=== PATIENT | female | born 2000 | race Caucasian/White ===

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

== ENCOUNTER 2020-02-13 09:47 | Outpatient (CLI) | payer MEDICAID, SELFPAY ==
--- NOTE | 2020-02-13 10:15 | US_ITS ---
WS: [id number] ULTRASOUND LEFT BREAST HISTORY: tender lump left lateral upper breast. COMPARISON: None available. TECHNIQUE: 2-D and Doppler. Ovoid soft tissue mass is hypoechoic centered at 1:00 as directed by the patient. Mass measures 2.0 x 0.9 x 1.7 cm. There is some increased vascularity. There are benign lymph nodes in the axilla. 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 Due to its size surgi link removal or ultrasound-guided biopsy could be performed to confirm diagnosis . If this mass increases in size biopsy or surgical removal is recommended.
== END 2020-02-13 09:48 | disposition home or self-care (01) ==
LOC: RAD 09:55
PROVIDERS: PCP Family Medicine; Visit Provider Emergency Medicine
DX: Z80.3 Family history of malignant neoplasm of breast; N63.20 Unspecified lump in the left breast, unspecified quadrant
CPT/HCPCS: 76642

== ENCOUNTER 2020-06-19 08:05 | Outpatient (CLI) | payer BC, MEDICAID, SELFPAY ==
--- NOTE | 2020-06-19 08:00 | US_ITS ---
WS: [id number] ULTRASOUND LEFT BREAST HISTORY: N63.0 - Unspecified lump in unspecified breast COMPARISON: 02/13/2020 TECHNIQUE: 2-D and Doppler. Ultrasound again performed of the palpable nodule 1:00, 5 cm from the nipple. There is a hypoechoic m ass which is ovoid in shape with increased vascularity. Mass measures 2.5 x 1.8 x 1.3 cm. Mass is elias suring larger in size as compared to the prior study. As recommended on the prior examination surgica l removal or ultrasound-guided biopsy can be performed. Due to its increase in size and being painful suggest surgical removal at this time. Small benign lymph nodes in the axilla. US/US breast LT limited* [id number] IMPRESSION: BI-RADS: 4-Suspicious Finding-Biopsy Should Be Considered FOLLOW-UP: Biopsy Recommended Due to the increase in size and pain consider surgical removal of this mass at 1:00. This mass has slightly increased in size since 02/13/2020. At that time ult rasound guided biopsy or surgical removal was recommended as a consideration. F ibroadenoma which is a benign lesion is still within the differential.
== END 2020-06-19 08:06 | disposition home or self-care (01) ==
LOC: RAD 08:13
PROVIDERS: PCP Family Medicine; Visit Provider Nurse Practitioner Women's Health
DX: N63.21 Unspecified lump in the left breast, upper outer quadrant (principal)
CPT/HCPCS: 76642

== ENCOUNTER → 2020-06-28 10:38 | Outpatient (BNVA) | payer BC, MEDICAID, SELFPAY | PROVIDERS: PCP Family Medicine; Visit Provider Surgery | DX: Z20.828 Contact with and (suspected) exposure to other viral communicable diseases (principal) | CPT/HCPCS: 87635 ==

== ENCOUNTER 2020-07-03 08:25 | Day surgery (SDC) | payer BC, MEDICAID, SELFPAY ==
[2020-07-02 11:18] VITALS: BMI 21.4
[2020-07-03 08:40] VITALS: BP 127/87; PULSE 87; RESP 18; TEMP 36.9; O2SAT 99
[2020-07-03] MEDS: sodium chloride 0.9% 1,000 ML 30 ML IV (09:01)
--- NOTE | 2020-07-03 09:36 | ANES.PREANE2 ---
Pre-Anesthetic Assessment Pre-Anesthetic Assessment: Height/Weight: Height 1.63 m Weight 56.699 kg Temp Pulse Resp BP Pulse Ox 98.5 F 87 18 127/87 99 07/03/20 08:40 07/03/20 08:40 07/03/20 08:40 07/03/20 08:40 07/03/20 08:40 Preop Diagnosis: Left breast mass Proposed Procedure: Operation Date: 07/03/20 10:00 Proposed Procedures p left breast simple lumpectomy N63.0(Not Applicable) - Waldemar Georges MD Was Beta Hernesto taken within 24 hours: N/A Last intake: Intake Last Liquid Date 07/02/20 Last Solid Date 07/02/20 Social: Social History: No alcohol and No tobacco Exam: Pre-Anes Outpt Exam: alert, oriented x 3, clear to auscultation bilaterally and regular rate & rhythm Airway: Submandibular: WNL Cervical ROM: WNL MP: 2 Dentition: Full Neuropsych: Neuropsych: Anxiety and [place] Anesthetic Plan: ASA status: 2 Anesthesia: MAC Risk of > 500 ml blood loss (7ml/kg in children): No Meds/Allergies Current Medications: Current Medications Generic Name Dose Route Start Last Admin Trade Name Freq PRN Reason Stop Dose Admin Sodium Chloride 1,000 mls @ 30 ml s/hr 07/03/20 08:30 07/03/20 09:01 Sodium Chloride 0.9% IV 07/04/20 08:29 30 mls/hr .Q24H SHREYA Administration PFSH Anesthesia PFSH: Medical History Chronic migraine Vision disturbance with migraine Depression Family history of breast cancer in first degree relative Hypoglycemia Surgical History H/O oral surgery (~2019) Family History Mother Hypertension Breast cancer, Onset Age: 29 Family history of thyroid problem Grandmother Hypertension Diabetes Paternal grandmother Breast cancer, Onset Age: 30 MGM Family history of thyroid problem Maternal grandmother Ovarian cancer Maternal grandmother Grandfather Hypertension Family/Other Breast cancer Maternal great aunt Denies family history of Stroke Female Reproductive History: Date of last menstrual period: 06/30/20 Spontaneous abortions: No Data Anesthesia Cardiac Studies: No Data to Display
--- NOTE | 2020-07-03 09:45 | W.PM.OPSUD ---
Surgery/Procedure H&P Update DATE OF PROCEDURE: July 03, 2020 DATE H&P PERFORMED: 06/24/20 H&P UPDATE INFORMATION: I have reviewed H&P completed within last 30 days, I have examined patient prior to procedure and No changes to prior documentation PREOP DIAGNOSIS: Left breast mass PLANNED PROCEDURE: Operation Date: 07/03/20 10:00 Proposed Procedures p left breast simple lumpectomy 60434 N63.0(Not Applicable) - Waldemar Georges MD
[2020-07-03 10:23] LABS: OR HCG Qualitative Urine Negative (Negative)
[2020-07-03] MEDS: lidocaine 1% INJ 20 mL IM (11:10)
--- NOTE | 2020-07-03 11:20 | P.OP_ITS ---
Operative Report Date of procedure: July 03, 2020 Pre-op Diagnosis: Left breast mass 2:00 clock position 4 cm from the nipple Post-op diagnosis: same Procedure Done: Left breast lumpectomy Specimens removed/disposition: Left breast mass 10 o'clock position 4 cm from the nipple Surgeon: Waldemar Georges Anesthesia: MAC and General Condition: stable Disposition: PACU Procedure: The patient was taken to the operating room and placed under MAC afte r IV antibiotic had been administered. The left breast was prepped and draped in a sterile manner. 1% lidocaine with 0.5% Marcaine was infiltrated around the left breast mass which was at 2 o'clock position about 4 cm from the nipple. A curvilinear areolar incision was made from 12:00 to 3 o'clock position and using electrocautery a lateral skin flap was placed to go down to the palpable mass. The mass was dissected free from the surrounding subcutaneous tissue and sent to pathology. The wound was irrigated with saline and subcutaneous was approximated using interrupted 3-0 Vicryl suture and skin was closed using running subcuticular 4-0 Monocryl and surgical glue. The patient was extubated and transferred to recovery room in stable condition.
[2020-07-03 11:30] VITALS: BP 94/50; PULSE 69; RESP 16; TEMP 36.1; O2SAT 96
[2020-07-03 11:56] VITALS: BP 101/55; PULSE 86; RESP 18; O2SAT 99
--- NOTE | 2020-07-03 13:05 | ANE.PACU2 ---
Inpatient post-anesthesia follow up: Airway intact: Yes Vital signs: Temperature 97 F Pulse Rate 86 Respiratory Rate 18 Blood Pressure 101/55 Pulse Oximetry 99 Oxygen Delivery Me thod Room Air Oxygen Flow Rate Fraction of Inspir ed Oxygen Hydration adequate: Yes Nausea and vomiting: No Pain level: 1 Mental status: Baseline
== END 2020-07-03 12:31 | disposition home or self-care (01) ==
PROVIDERS: Anesthesiology; PCP Family Medicine; Visit Provider Surgery
PROC: (CPT 19301; principal; 2020-07-03 10:00)
DX: D24.2 Benign neoplasm of left breast (principal); Z80.3 Family history of malignant neoplasm of breast
CPT/HCPCS: 19301; 12345; 84703; 88305; J0690; J1885; J2250; J2405; J2704; J3010; J3490; J7030

== ENCOUNTER 2020-07-18 22:31 | Emergency (ER) | payer BC, MEDICAID, SELFPAY ==
[2020-07-18 22:50] VITALS: BP 136/75; PULSE 70; RESP 16; TEMP 36.1; O2SAT 100; BMI 20.7
--- NOTE | 2020-07-18 23:18 | W.ED.GENADLT ---
HPI - General Adult General: Chief complaint: General Medical Stated complaint: BLEEDING FROM SURGICAL SITE(2 WKS AGO)/ALEXANDER MEZA Time Seen by Provider: 07/18/20 22:56 Source: patient Mode of arrival: ambulatory Limitations: no limitations History of Present Illness: HPI narrative: 19-year-old female who had a breast mass removed 2 to 3 weeks ago. She had a follow-up ointment with Dr. Meza today and had a hematoma formed to the upper portion of her breast. He did drain it with an 18-gauge but she states she has had increased bleeding from the needle site. She states she is soaking through her dressings. She does have some pain she rates a 5 out of 10. Denies any worsening improving factors. Associated symptoms: Deny chest pain, dyspnea, headache(s), nausea, rash or vomiting Review of Systems Const: Denies: fever(s), chills, body aches or change in appetite Eyes: Denies: blurry vision or eye discomfort ENMT: Denies: throat pain or dental pain Card: Denies: chest pain Resp: Denies: dyspnea GI: Denies: abdominal pain, nausea, vomiting or diarrhea : Denies: dysuria Musc: Denies: neck pain or back pain Skin/Breast: Denies: rash Neuro: Denies: headache(s) Psych: Denies: depression Samir/Lymph: Denies: easy bruising All/Imm: Denies: urticaria PFSH ED PFSH: Medical History Breast mass left breast mass; typical for fibroadenoma Chronic migraine Vision disturbance with migraine Depression Family history of breast cancer in first degree relative Hypoglycemia Surgical History H/O oral surgery (~2019) Status post left breast lumpectomy (07/03/20) Family History Mother Hypertension Breast cancer, Onset Age: 29 Family history of thyroid problem Grandmother Hypertension Diabetes Paternal grandmother Breast cancer, Onset Age: 30 MGM Family history of thyroid problem Maternal grandmother Ovarian cancer Maternal grandmother Grandfather Hypertension Family/Other Breast cancer Maternal great aunt Denies family history of Stroke Female Reproductive History: Date of last menstrual period: 06/30/20 Spontaneous abortions: No Physical Exam Const: COMMON NORMALS: no acute distress, patient oriented x3 and healthy appearing HENMT: COMMON NORMALS: normocephalic and atraumatic HEAD & SCALP: normocephalic and atraumatic Eye: COMMON NORMALS: Equal, round and reactive pupils present and EOMs intact bilaterally PUPIL: Yes Equal, round and reactive pupils present Neck/C-Spine: COMMON NORMALS: full ROM and supple Chest: COMMONS NORMALS: normal palpation of entire chest wall OTHER: Patient has a hematoma to her left breast. Have been drained with an 18-gauge needle appears today but still has blood draining from where the needle was and still has hematoma noted. Resp: COMMON NORMALS: normal respiratory effort, No retractions, No use of accessory muscles and clear to auscultation bilaterally AUSCULTATION: clear to auscultation bilaterally Cardio: COMMON NORMALS: regular rate, regular rhythm and No murmurs present (Cardio) RATE: regular rate RHYTHM: regular rhythm GI: COMMON NORMALS: Normal to inspection, nondistended, normoactive bowel sounds present, Soft to palpation, non-tender and no masses PALPATION: Yes Soft to palpation Extremity: COMMON NORMALS: normal to inspection and full ROM Neuro: COMMON NORMALS: patient oriented x3, moves all extremities and no focal motor deficits Psych: COMMON NORMALS: mental status grossly normal, Normal thought process present and cooperative THOUGHT PROCESS: Normal thought process present Skin: COMMON NORMALS: no rashes or lesions noted and no wounds GENERAL SKIN EXAM: no rashes or lesions noted Course Vital Signs: Vital signs: Vital Signs Temperature 97.0 F L 07/18/20 22:50 Pulse Rate 70 07/18/20 22:50 Respiratory Rate 16 07/18/20 22:50 Blood Pressure 136/75 07/18/20 22:50 Pulse Oximetry 100 07/18/20 22:50 MDM - General Adult MDM Narrative: Medical decision making narrative: Patient presents with a hematoma to her left breast. Hematoma was drained today. She has had some slight drainage from the hematoma but is well-appearing here. Placed a compression dressing on it with an Kaden wrap. She is to follow-up in Dr. Meza with 2 to 3 days and return to the ER if worsening. She understands agrees to plan. Discharge Plan Discharge Patient Disposition: Home Clinical Impression: Breast hematoma Condition: Stable Prescriptions: No Action Nexplanon 68 mg implant 1 implant SUBDERMAL ONCE RF: 0 multivitamin Capsule 1 cap PO QAM RF: 0 ondansetron 4 mg tablet,disintegrating 4 mg PO Q6H PRN (Reason: nausea and vomiting) Qty: 12 RF: 0 evening primrose oil 500 mg capsule 500 mg PO DAILY RF: 0 Colace 100 mg capsule 100 mg PO BID Qty: 30 RF: 0 Discharge Orders: Discharge ED (Routine); Ordered 07/18/20 Ordered By: Laura Jean-Baptiste Referrals: Waldemar Meza MD [Physician] - 1-3 days Tanvi Peña DO [Primary Care Provider] - Discharge Diet: Advance as tolerated Discharge Activity: Resume usual activity Patient Instructions: Postoperative Bleeding (ED) Stand Alone Forms: Work/School Release Coding Level of Care Code ED Glazier Helper for Justinag Fwd Exam Comprehensive
[2020-07-18] MEDS: HYDROcodone-acetaminophen 7.5-325 mg Tablet 1 TAB PO (23:22)
[2020-07-18] MEDS: lidocaine 1% INJ 20 mL INJECTION (23:25)
[2020-07-19 00:04] VITALS: PULSE 66; O2SAT 100
== END 2020-07-19 00:04 | disposition home or self-care (01) ==
PROVIDERS: Emergency Provider Emergency Medicine; PCP Family Medicine
DX: L76.32 Postprocedural hematoma of skin and subcutaneous tissue following other procedure (principal)
CPT/HCPCS: 99283

== ENCOUNTER → 2021-03-09 15:31 | Outpatient (BNVA) | payer BC, MEDICAID, SELFPAY | PROVIDERS: PCP Family Medicine; Visit Provider Nurse Practitioner Women's Health | DX: Z11.3 Encounter for screening for infections with a predominantly sexual mode of transmission (principal); Z01.419 Encounter for gynecological examination (general) (routine) without abnormal findings; Z30.46 Encounter for surveillance of implantable subdermal contraceptive | CPT/HCPCS: 86592; 86803; 87340; 87491; 87591; 87661; 87806 ==

== ENCOUNTER → 2021-06-10 14:00 | Outpatient (BNVA) | payer BC, MEDICAID, SELFPAY | PROVIDERS: PCP Family Medicine; Visit Provider Nurse Practitioner Women's Health | DX: A74.9 Chlamydial infection, unspecified (principal) | CPT/HCPCS: 87491 ==

== ENCOUNTER → 2021-10-01 11:41 | Outpatient (BNVA) | payer BC, MEDICAID, SELFPAY | PROVIDERS: PCP Family Medicine; Visit Provider Nurse Practitioner Women's Health | DX: N92.6 Irregular menstruation, unspecified (principal) | CPT/HCPCS: 82306; 83036; 84146; 84402; 84439; 84443; 87491; 87591; 87661 ==

== ENCOUNTER → 2022-01-15 09:32 | Outpatient (BNVA) | payer BC, MEDICAID, SELFPAY | PROVIDERS: PCP Family Medicine; Visit Provider Nurse Practitioner Women's Health | DX: N92.6 Irregular menstruation, unspecified (principal) | CPT/HCPCS: 76830 ==

== ENCOUNTER 2022-01-17 21:50 | Emergency (ER) | payer BC, MEDICAID, SELFPAY ==
--- NOTE | 2022-01-17 21:54 | ECG_ITS ---
[facility] Test Date: 2022-01-17 Pat Name: Faye High Department: Room: Gender: Female Drug Abuse Resistance Education Officer: : 2000 Requested By: Laura Jean-Baptiste Order Number: [id number] Cara MD: Tyrell Reid M.D. Measurements Intervals [place] Rate: 88 P: 148 NE: 125 QRS: 137 QRSD: 98 T: 73 QT: 363 QTc: 441 Interpretive Statements ECTOPIC ATRIAL RHYTHM POSSIBLE LEFT ATRIAL ENLARGEMENT [-0.1mV P-WAVE IN V1/V2] LEFT POSTERIOR FASCICULAR BLOCK [QRS AXIS > 109, INFERIOR Q] No previous ECG available for comparison Electronically Signed On 01-18-2022 13:13:19 CDT by Tyrell Reid M.D. [id number] kira
--- NOTE | 2022-01-17 21:54 | XRR_ITS ---
PROCEDURE INFORMATION: Exam: XR Chest Exam date and time: 01/17/2022 10:14 PM Age: 21 years old Clinical indication: Pain; Prior surgery; Surgery date: 6+ months; Surgery type: Left breast lumpectomy; Patient HX: C/O chest pressure today and 1 week ago or more. ; Additional info: Cp TECHNIQUE: Imaging protocol: Radiologic exam of the chest. Views: 1 view. COMPARISON: CT kidney stone [id number] 03/08/2017 10:47 PM FINDINGS: Lungs: Unremarkable. No consolidation. Pleural spaces: Unremarkable. No pleural effusion. No pneumothorax. Heart/Mediastinum: Unremarkable. No cardiomegaly. Bones/joints: Unremarkable. XR/XR chest 1V portable [id number] IMPRESSION: No acute findings.
[2022-01-17 22:01] VITALS: BP 148/96; PULSE 88; RESP 16; TEMP 36.9; O2SAT 99
[2022-01-17 23:18] VITALS: BP 115/68; PULSE 60; RESP 16; O2SAT 98
--- NOTE | 2022-01-17 23:37 | ED_ITS ---
HPI - Chest Pain General: Chief Complaint: Chest Pain Stated Complaint: chest pain Time Seen by Provider: 01/17/22 23:30 History of Present Illness: 21-year-old female comes in today with complaints of left lower chest pain radiating to the midepigastric area. Patient reports that nothing seems to worsen the pain or lessen the pain. Patient reports symptoms started this afternoon around 4:00. Patient also had a similar event 2 to 3 weeks ago. Patient denies any fever or chills. Patient appears nontoxic. Patient appears in no pain at rest. 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 Family History Mother Hypertension Breast cancer dx age 29 Family history of thyroid problem Grandmother Hypertension Paternal Diabetes Paternal grandmother Breast cancer MGM--dx age 30 Family history of thyroid problem Maternal grandmother Ovarian cancer Maternal grandmother--dx age unknown Grandfather Hypertension Paternal Family/Other Breast cancer Maternal great aunt--dx age unknown Father Heart disease Hypertension Denies family history of Colon cancer Hypercholesteremia Uterine cancer Stroke Social History Smoking and tobacco status: never smoked Female Reproductive History: Date of last menstrual period: 06/30/20 Spontaneous abortions: No Physical Exam Const: COMMON NORMALS: alert HENMT: COMMON NORMALS: normocephalic and Normal external nose present HEAD & SCALP: normocephalic NOSE: Normal external nose present Eye: GENERAL EYE: appearance normal, both eyes and all related structures Neck/C-Spine: COMMON NORMALS: full ROM Chest: COMMONS NORMALS: normal palpation of entire chest wall Resp: COMMON NORMALS: normal respiratory effort and clear to auscultation bilaterally AUSCULTATION: clear to auscultation bilaterally Cardio: COMMON NORMALS: regular rate and regular rhythm RATE: regular rate RHYTHM: regular rhythm GI: COMMON NORMALS: Soft to palpation and non-tender PALPATION: Yes Soft to palpation : COMMON NORMALS: Yes no CVA tenderness BLADDER/KIDNEY EXAM: Yes no CVA tenderness Back/Pelvis: COMMON NORMALS: no CVA tenderness Extremity: COMMON NORMALS: no pedal edema Neuro: SENSORIUM/ORIENTATION: Yes alert Skin: COMMON NORMALS: turgor normal GENERAL SKIN EXAM: turgor normal Course Vital Signs: Vital signs: Vital Signs Temperature 98.5 F 01/17/22 22:01 Pulse Rate 60 01/17/22 23:18 Respiratory Rate 16 01/17/22 23:18 Blood Pressure 115/68 01/17/22 23:18 Pulse Oximetry 98 01/17/22 23:18 MDM - Chest Pain Medical Decision Making 21-year-old female comes in [facility] with an episode of chest discomfort. On exam lungs are clear to auscultation, chest wall is nontender, heart sounds were normal, regular rhythm was noted. No edema is noted in the extremities. Abdomen soft nontender. Vital signs were normal. Differential diagnosis includes but not limited to valvular heart disease, ACS, pleurisy, anxiety. Chest x-ray was unremarkable. Laboratory values were unremarkable. Troponin was less than 6. EKG showed a sinus rhythm with no ST elevation or ectopy. Reviewed exam with patient recommended to follow-up with primary care or agronomy internship. Patient wanted to go ahead and have the referral to cardiology for further evaluation and treatment. Case management was requested to set up appointment with cardiology for further evaluation. Patient was recommended to return to the ER for worsening symptoms or new concerns. Lab Data : 01/17/22 23:45 01/17/22 23:45 Radiology Impressions Chest X-Ray 01/17/22 21:54 IMPRESSION: No acute findings. Laboratory Results WBC 7.7 10^3/uL (4.0-10.0) 01/17/22 23:45 RBC 4.38 10^6/uL (4.1-5.3) 01/17/22 23:45 Hgb 13.2 g/dL (11.5-15.3) 01/17/22 23:45 Hct 40.9 % (37.0-47.0) 01/17/22 23:45 MCV 93.4 fl (81-99) 01/17/22 23:45 MCH 30.1 pg (28.0-34.0) 01/17/22 23:45 MCHC 32.3 g/dL (30.0-36.0) 01/17/22 23:45 RDW 11.8 % (12.1-15.1) L 01/17/22 23:45 Plt Count 245 10^3/cmm (130-400) 01/17/22 23:45 MPV 11.0 fL (7.4-10.4) H 01/17/22 23:45 Neut % (Auto) 43.3 % 01/17/22 23:45 Lymph % (Auto) 46.7 % 01/17/22 23:45 Deuel % (Auto) 7.8 % 01/17/22 23:45 Eos % (Auto) 1.4 % 01/17/22 23:45 Baso % (Auto) 0.7 % 01/17/22 23:45 Neut # (Auto) 3.32 10^3/uL (1.8-7.7) 01/17/22 23:45 Lymph # (Auto) 3.6 10^3/uL (0.8-4.8) 01/17/22 23:45 Deuel # (Auto) 0.6 10^3/uL (0.2-0.9) 01/17/22 23:45 Eos # (Auto) 0.1 10^3/uL (0.0-0.8) 01/17/22 23:45 Baso # (Auto) 0.1 10^3/uL (0.0-0.1) 01/17/22 23:45 Nucleated RBC % (auto) 0 % 01/17/22 23:45 Nucleated RBCs # 0.0 /100WBC 01/17/22 23:45 Sodium 138 mmol/L (136-145) 01/17/22 23:45 Potassium 3.8 mmol/L (3.5-5.1) 01/17/22 23:45 Chloride 103 mmol/L (98-107) 01/17/22 23:45 Carbon Dioxide 24 mmol/L (22-29) 01/17/22 23:45 Anion Gap 14.8 (5-19) 01/17/22 23:45 BUN 13 mg/dL (6-20) 01/17/22 23:45 Creatinine 0.5 mg/dL (0.5-0.9) 01/17/22 23:45 GFR Calculation 155.7 mL/min (90-130) H 01/17/22 23:45 Glucose 85 mg/dL (65-115) 01/17/22 23:45 Calculated Osmolality 285 mOsm/kg (285-295) 01/17/22 23:45 Calcium 9.3 mg/dL (8.5-10.5) 01/17/22 23:45 Total Bilirubin 0.2 mg/dL (0.15-1.2) 01/17/22 23:45 AST 13 U/L (0-32) 01/17/22 23:45 ALT 11 U/L (0-33) 01/17/22 23:45 Alkaline Phosphatase 84 IU/L (35-105) 01/17/22 23:45 Troponin T Baseline 6 ng/L (0-10) 01/17/22 23:45 Total Protein 7.3 g/dL (6.6-8.7) 01/17/22 23:45 Albumin 4.3 g/dL (3.5-5.2) 01/17/22 23:45 Globulin 3.0 g/dL (1.3-4.6) 01/17/22 23:45 HCG, Qual Negative (Negative) 01/17/22 23:45 Discharge Plan Discharge Patient Disposition: Home Clinical Impression: Chest pain Qualifiers: Chest pain type: other chest pain Qualified Code(s): R07.89 - Other chest pain Condition: Stable Prescriptions: No Action albuterol sulfate 90 mcg/actuation HFA aerosol inhaler 2 puff inhalation Q6H PRN (Reason: shortness of breath or wheezing) Qty: 8.5 0RF amoxicillin-pot clavulanate 875-125 mg tablet 1 tab PO BID 7 Days Qty: 14 0RF [id number] [Bromfed DM] 2-30-10 mg/5 mL syrup 7.5 ml PO Q6H PRN (Reason: cold symptoms) Qty: 160 0RF prednisone 20 mg tablet 20 mg PO DAILY 5 Days Qty: 5 0RF cholecalciferol (vitamin D3) 1,250 mcg (50,000 unit) capsule 50,000 unit PO .weekly 56 Days Qty: 8 0RF Discharge Orders: Discharge ED (Routine); Ordered 01/18/22 Ordered By: Gen Mancia Referrals: Tanvi Peña DO [Primary Care Provider] - Discharge Diet: Usual diet Discharge Activity: Increase activity as tolerated Patient Instructions: Chest Pain (ED) Activity Restrictions/Additional Instructions: Follow-up with primary care in the morning for further evaluation and treatment. Your primary care provider may want to have further testing regarding your chest discomfort. Your labs, EKG, and x-rays indicated no acute illnesses. Follow-up with emergency department for worsening symptoms such as increasing shortness of breath, fever greater than 100.4, or uncontrolled pain. Coding Level of Care Code ED Certified Dialysis Technician for Risa Fwtani Exam Comprehensive
[2022-01-18 00:19] LABS: Alanine Aminotransferase 11 U/L (0-33); Albumin Level 4.3 g/dL (3.5-5.2); Alkaline Phosphatase 84 IU/L (35-105); Anion Gap 14.8 (5-19); Aspartate Amino Transferase 13 U/L (0-32); Blood Urea Nitrogen 13 mg/dL (6-20); Calcium 9.3 mg/dL (8.5-10.5); Carbon Dioxide 24 mmol/L (22-29); Chloride 103 mmol/L (98-107); Glomerular Filtration Rate 155.7 mL/min (90-130); Glucose 85 mg/dL (65-115); Osmolality Calculated 285 mOsm/kg (285-295); Potassium 3.8 mmol/L (3.5-5.1); Sodium 138 mmol/L (136-145); Total Bilirubin 0.2 mg/dL (0.15-1.2); Total Protein 7.3 g/dL (6.6-8.7)
[2022-01-18 00:20] LABS: Basophils # 0.1 10^3/uL (0.0-0.1); Basophils % 0.7 %; Eosinophils # 0.1 10^3/uL (0.0-0.8); Eosinophils % 1.4 %; Hematocrit 40.9 % (37.0-47.0); Hemoglobin 13.2 g/dL (11.5-15.3); Lymphocytes # 3.6 10^3/uL (0.8-4.8); Lymphocytes % 46.7 %; Mean Corpuscular HGB Conc 32.3 g/dL (30.0-36.0); Mean Corpuscular Hemoglobin 30.1 pg (28.0-34.0); Mean Corpuscular Volume 93.4 fl (81-99); Monocytes # 0.6 10^3/uL (0.2-0.9); Monocytes % 7.8 %; Neutrophils # 3.32 10^3/uL (1.8-7.7); Neutrophils % 43.3 %; Nucleated Red Blood Cells % 0 %; Platelet Count 245 10^3/cmm (130-400); Red Blood Count 4.38 10^6/uL (4.1-5.3); Red Cell Distribution Width 11.8 % (12.1-15.1); White Blood Count 7.7 10^3/uL (4.0-10.0)
[2022-01-18 00:21] LABS: HCG, Serum Qual Negative (Negative)
[2022-01-18 00:22] LABS: Troponin(5th) Baseline 6 ng/L (0-10)
[2022-01-18 00:53] VITALS: BP 122/68; PULSE 55; RESP 16; O2SAT 98
--- NOTE | 2022-01-18 10:35 | DCPLANNER ---
Addendum entered by Skye Sorensen 02/25/22 07:54: Patient had a follow up appointment scheduled with heart care - patient did attend appointment. Addendum entered by Skye Sorensen 01/21/22 14:27: Patient has a follow up appointment scheduled for Tuesday, February 24, 2022 at 10:[address] English at [facility]. Clinic will call patient with appointment information. Original Note: manager commercial sales had message to schedule a follow up appointment for patient with cardiology. manager commercial sales sent patients information to the front office staff at [facility]. Patients information will be printed and reviewed. Clinic will call patient with appointment information.
== END 2022-01-18 00:54 | disposition home or self-care (01) ==
PROVIDERS: Emergency Medicine; Emergency Provider Nurse Practitioner Family; PCP Family Medicine
DX: R07.89 Other chest pain (principal)
CPT/HCPCS: 71045; 80053; 84484; 84703; 85025; 86140; 93005; 99285

== ENCOUNTER → 2022-04-02 15:00 | Outpatient (BNVA) | payer BC, MEDICAID, SELFPAY | PROVIDERS: PCP Family Medicine; Visit Provider Nurse Practitioner Women's Health | DX: Z01.419 Encounter for gynecological examination (general) (routine) without abnormal findings (principal); N92.6 Irregular menstruation, unspecified | CPT/HCPCS: 84702; 88175 ==

== ENCOUNTER 2022-04-14 06:10 | Outpatient (CLI) | payer BC, MEDICAID, SELFPAY ==
--- NOTE | 2022-04-14 06:30 | USCV_ITS ---
Faye High Age: 21 Gender: F : 2000 Exam Date: 04/14/2022 06:19 Ordering Phys: Bowen English MD ([email or web address]) Technologist: ROHINI Exam Location: [facility] [place] Indication: CHEST PAIN AND HEART MURMUR BP: 120 / 70 HR: 58 Rhythm: Sinus Technical Quality: Adequate MEASUREMENTS (Male / Female) Normal Values 2D ECHO LVOT Diameter 2.0 cm LV Ejection Fraction MOD 2C 71.4 % LV Ejection Fraction 2C AL 71.1 % LA Diameter 2.6 cm LA Width 2.6 cm LA Height 3.1 cm RA Width 2.7 cm RA Height 4.0 cm Aorta at Sinotubular Diameter 2.0 cm IVC Diameter 1.9 cm M-MODE Aortic Annulus Diameter 1.9 cm LA Ao Ratio MM 1.2 MV E Point Septal Separation 0.3 cm DOPPLER AV Peak Velocity 169.3 cm/s LVOT Peak Velocity 101.0 cm/s AV Area Cont Eq vti 1.8 cm squared AV Area Cont Eq pk 1.9 cm squared MV Peak Velocity 132.0 cm/s MV Area PHT 4.1 cm squared Mitral E to A Ratio 1.7 MV E' Velocity 59.5 cm/s Mitral E to MV E' Ratio 4.9 Mitral E to LV E' Lateral Ratio 4.9 Mitral E to LV E' Septal Ratio 4.9 TR Peak Velocity 159.7 cm/s TR Peak Gradient 10.2 mmHg TR Mean Velocity 126.9 cm/s TR Mean Gradient 6.7 mmHg TR Velocity Time Integral 41.3 cm TV Peak E Velocity 89.0 cm/s Right Atrial Pressure 3.0 mmHg Pulmonary Artery Systolic Pressu 13.2 mmHg PV Peak Velocity 137.0 cm/s RV Acceleration Time 0.2 s RV Ejection Time 0.3 s RV AcT/ET 0.5 FINDINGS Left Ventricle Normal left ventricular size and systolic function, EF 68 %. No regional wall motion abnormalities. Right Ventricle The right ventricle is normal in size and function. Right Atrium The right atrium is normal in size. Left Atrium The left atrium is normal in size. Mitral Valve No gross abnormalities noted Aortic Valve No gross abnormalities noted Tricuspid Valve No gross abnormalities noted Pulmonic Valve No gross abnormalities noted Pericardium Normal pericardium without effusion. Aorta Normal ascending aorta dimension. IVC The inferior vena cava appears normal. CONCLUSIONS Normal left ventricular size and systolic function, EF 68 %. No regional wall motion abnormalities. Normal cardiac chamber sizes No significant valvular abnormalities were noted No intracardiac shunt by color-flow Doppler examination No pericardial effusion No similar previous studies are available for comparison Dr Bowen English MD FACC (Electronically Signed) Final Date: 14 April 2022 18:45 S
== END 2022-04-14 06:11 | disposition home or self-care (01) ==
LOC: RAD 06:11
PROVIDERS: PCP Family Medicine; Visit Provider Internal Medicine Cardiovascular Disease
DX: R06.09 Other forms of dyspnea (principal); R01.1 Cardiac murmur, unspecified; R07.9 Chest pain, unspecified
CPT/HCPCS: 93306

== ENCOUNTER 2022-05-25 12:22 | Outpatient (CLI) | payer BC, MEDICAID, SELFPAY ==
[2022-05-25 12:53] VITALS: BMI 24.1
--- NOTE | 2022-05-25 12:53 | ECG_ITS ---
[facility] Test Date: 2022-05-25 Pat Name: Faye High Department: Room: Gender: Female Legal Officer: Ansley Cooper : 2000 Requested By: Bowen English Order Number: [id number] Cara MD: Bowen English M.D. Interpretive Statements NAME OF STUDY: TREADMILL STRESS TEST INDICATION: Chest Pain, PROCEDURE: The baseline electrocardiogram showed normal sinus rhythm with normal ST-Ts the heart rate was 90 bpm.. At the baseline, the patient's blood pressure was 126/68 mm Hg with a heart rate of 90. The patient exercised for 7 minutes and 30 seconds on a standard [place] protocol. Patient attained a maximum heart rate of 187 beats per minute(94% of the maximum predicted heart rate) with a blood pressure at the peak exercise of 172/108 mm Hg. The EKG at the peak exercise revealed no significant changes. Patient did not have any chest pain or any significant arrhythmis with the exercise During the recovery phase, there were no new changes. Blood pressure at the end of the recovery phase was 139/67 mm Hg with a heart rate of 98 per minute. CONCLUSION: 1. No significant EKG changes with thetreadmill exercise 2. No exercise-induced chest pain or cardiac arrhythmia 3. Fair exercise tolerance, attained a maximum of 10.2 METs Electronically Signed On 06-01-2022 14:56:04 FLOOR SANDER by Bowen English M.[email or web address]
[2022-05-25 13:19] VITALS: BP 139/67; PULSE 98
== END 2022-05-25 12:23 | disposition home or self-care (01) ==
PROVIDERS: PCP Family Medicine; Visit Provider Internal Medicine Cardiovascular Disease
DX: R07.9 Chest pain, unspecified (principal)
CPT/HCPCS: 93017